=== PATIENT | male | born 1970 | race Caucasian/White ===

== ENCOUNTER 2016-08-06 19:24 | Emergency (ER) | payer OTHER ==
[~2016-08-06] VITALS: Ht 177.8 cm; Wt 94.7 kg
[2016-08-06 19:37] VITALS: Ht 177.8 cm; Wt 94.7 kg
[2016-08-06] MEDS ORDERED: XYLOCAINE 1%/SOD BICARB 20 ML VIAL INFIL ONE (19:52)
[2016-08-06] MEDS ORDERED: DIPHTHERIA/TETANUS/PERTUSSIS 0.5 ML SYR/VIAL IM. ONE (20:00)
[2016-08-06 20:37] VITALS: BP 131/91; PULSE 61; TEMP 36.6; O2SAT 99
--- NOTE | 2016-08-06 23:21 | EMERGENCY ROOM VISIT NOTE ---
History First contact with patient: 19:40 Chief Complaint: LACERATION/CUT (SUT/DERMABOND) Stated Complaint: LACERATION ON NOSE Nursing Triage Summary: pulling on a bungies strap and it came back and hit him min the nose at 1500 injury to nose History of Present Illness The patient is a 45 year old male who presents to the Emergency Room with complaints of laceration to the right side of his nose. 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 He states the strap came loose, came backwards, and struck him in the nose about 4 hours ago. He went to a local urgent care clinic who referred him to the ER for further evaluation. The patient is unsure of his tetanus status. He does not have significant pain of his face or jaw. The bleeding is well controlled and the wound has been bandaged. The patient rates his current discomfort a 1/10 and is without further complaints. Review of Systems More than 10 systems were reviewed and otherwise negative with the exception of history of present illness. Past Medical/Surgical History No chronic medical disease Family History No pertinent family history Social History Smoking Status: Never Smoker Housing Status: lives with family Occupation Status: employed Current/Historical Medications Unable to Obtain Active Prescriptions or Reported Meds Allergies Coded Allergies: No Known Allergies (Unverified , 08/16/12) Physical Exam Vital Signs Date Time Temp Pulse Resp B/P Pulse Ox O2 Delivery O2 Flow Rate FiO2 08/06/16 20:37 36.6 61 18 131/91 99 08/06/16 20:36 61 18 131/91 99 Room Air 08/06/16 19:37 36.6 67 18 140/107 99 Room Air Pain Rating (0-10): 0 Physical Exam VITALS: Vitals are noted on the nurse's note and reviewed by myself. Vital signs stable. GENERAL: Well-developed, well-nourished, white male, who is in no acute distress and resting comfortably. Patient is cooperative with the examination. HEAD: Normocephalic atraumatic. NOSE: Patent, turbinates without inflammation or discharge. No septal hematoma. There is a 1 cm J-shaped laceration on the very medial aspect of the right nares. This appears to be a through and through laceration and will require repair. MOUTH: Mucous membranes moist. Tonsils are not enlarged. Pharynx without erythema, blood, or exudate. Uvula midline. Airway patent. NECK: Supple without nuchal rigidity. No lymphadenopathy. No thyromegaly. Cervical spine is nontender. HEART: Regular rate and rhythm without murmurs gallops or rubs. LUNGS: Clear to auscultation bilaterally without wheezes, rales or rhonchi. No retractions or accessory muscle use. Medical Decision & Procedures Medications Administered Medications (Trade) Dose Ordered Sig/Lakisha Route Start Time Stop Time Status Last Admin Dose Admin Diphtheria/ Pertussis/Tetanus Vacc (Adacel Inj) 0.5 ml ONCE ONCE IM. 08/06/16 20:00 08/06/16 20:01 DC 08/06/16 19:53 0.5 ML Procedure Laceration repair. Patient elects to have their laceration repaired. Verbal consent was obtained to perform the procedure. There is an abundance of materials available for the procedure. Patient is not allergic to latex. Using sterile technique the wound was cleaned with Betadine. The area was sterilely draped. 1 ml of 1% buffered lidocaine was used to anesthetize the right nasal laceration. Once the patient was anesthetized, the wound was copiously irrigated under pressure with sterile saline. The wound was explored and there were no deep structures injured such as tendons, bone, or significant blood vessels. The laceration was repaired using 3 simple interrupted 6-0 nylon sutures with the wound edges being well approximated. Hemostasis was achieved. The area was cleaned with sterile saline and dressed with bacitracin ointment and bandage. The patient was given a tetanus booster. Patient tolerated the procedure well without complications. Blood loss was negligible. ED Course Physical exam and history were performed. Nursing notes and EMR were reviewed. Patient appears to have a laceration to the right side of his nose. The wound appears to be a through and through laceration, however the overall size is about 1 cm in length. The wound was repaired as above and the patient tolerated the procedure well. Cosmetically the wound was very well approximated. I do not appreciate septal hematoma or other significant traumatic injury. The patient's tetanus was updated and wound instructions were discussed. The patient was invited back to the ER anytime with any new, worsening, or concerning symptoms. The chart was completed utilizing [employer] Voice Recognition Software. Grammatical errors, random word insertions, pronoun errors, and incomplete sentences are an occasional consequence of this system due to software limitations, ambient noise, and hardware issues. Any formal questions or concerns about the content, text, or information contained within the body of this dictation should be directly addressed to the provider for clarification. . Medical Decision Differential diagnosis includes, but is not limited to: Laceration, abrasion, nasal injury, and others Impression Primary Impression: Nasal laceration Departure Information Dispostion Home / Self-Care Condition GOOD Prescriptions Unable to Obtain Active Prescriptions or Reported Meds Forms HOME CARE DOCUMENTATION FORM, IMPORTANT VISIT INFORMATION Patient Instructions [facility] Additional Instructions Keep wound clean and dry. Do not allow any crusting or dried blood to accumulate on sutures. If this occurs, use a mild soap/water on a Q-tip to clean the wound. Do not use Peroxide to clean the wound as this can delay healing Use an antibiotic ointment like Bacitracin for 3-4 days, then let wound dry. You may bathe and shower as normal, but DO NOT SOAK the wound. Suture removal in about 7 days with your Family Doctor or in the ER. Return sooner for any signs of infection, increasing redness, swelling, or drainage.
== END 2016-08-06 20:38 | disposition home or self-care (01) ==
LOC: C.EDB 19:25 → C.EDD 20:38
DX: S01.21XA Laceration without foreign body of nose, initial encounter (principal); W20.8XXA Other cause of strike by thrown, projected or falling object, initial encounter; Z23 Encounter for immunization